=== PATIENT | female | born 1970 | race Caucasian/White ===

== ENCOUNTER 2018-04-12 06:36 | Day surgery (SDC) | payer OTHER, MEDICAID, SELFPAY ==
[2018-04-04 15:03] VITALS: BMI 52.0
[2018-04-12] VITALS (8 sets, daily range): BP systolic 111–179; BP diastolic 61–110; PULSE 66–77; RESP 12–20; TEMP 35.9–37.1; O2SAT 92–96; BMI 52.0
--- NOTE | 2018-04-12 | PATH_ITS ---
[facility] Accession Number: [id number] . 01 Material submitted: . LEFT CHEST MASS . 02 Diagnosis: Mass Left Chest: Subcutaneous lipoma, negative for atypia. MRV/04/16/2018 . 02 Electronically signed: . Alli Acosta MD, Pathologist NPI- [id number] . 01 Gross description: . Received in formalin, labeled 1-L chest mass, is an unoriented piece of fonseca-white smooth shiny skin with underlying tissue (4.9 x 3.0 x 2.2 cm). The underlying tissue is fatty and contains a fonseca-yellow solid rubbery mass (1.4 x 1.3 x 0.8 cm) located 0.5 cm from the skin surface and 0.3 cm from the closest resection margin. [employer] Specialist slices submitted in cassettes A1 and A2. ([id number]) /MRV . 02 Pathologist provided ICD-10: D17.1 . 02 CPT . 909340 Performed at: 01 [facility] [address] [id number] MD Kash Tamayo MD Phone: [phone] Performed at: 02 [facility] [address] [place], [place] [id number] MD Luis Angel Espinosa MD Phone: [phone]
[2018-04-12] MEDS: LACTATED RINGERS 1,000 ML 100 ML IV (07:15)
--- NOTE | 2018-04-12 07:46 | PM.HP.1 ---
History of Present Illness Date Patient Seen: 04/12/18 Time Patient Seen: 07:47 Chief complaint: [id number] EXCISION OF LEFT CHEST WALL MASS Narrative: Patient is a woman with Prader Willi syndrome with a tender mass in her left upper chest here for removal. Patient History Medical History Anxiety (Acute) Back pain (Acute) Bipolar depression (Acute) Diabetes (Acute) Foot pain, left (Acute) GERD (gastroesophageal reflux disease) (Acute) History of headache (Acute) Leg numbness (Acute) Mass in chest (Acute) Morbid obesity (Acute) Night sweats (Acute) Polyphagia (Acute) Ringing in ears (Acute) Shingles (Acute ~2014) Surgical menopause (Acute) Family & Social History Family History: Reviewed 04/12/18 by Trey Daniel MD Social History: household members family Tobacco & Substance use: Smoking Status Never smoker Meds Home Medications Medication Instructions Recorded Confirmed Type Glucose: Test Strips 0 str QDAY #100 str 06/28/16 Rx Glucose: Home Monitoring Kit kit BID #1 12/15/16 Rx Lancets units INTRADERMAL BID #180 12/15/16 Rx cholecalciferol (vitamin D3) 5,000 unit BID #0 01/12/18 04/12/18 History lysine [L-Lysine] 1,000 mg PO DAILY #0 01/12/18 04/12/18 History metformin [Glucophage] 500 mg PO BIDCC #180 tab 01/12/18 04/12/18 Rx multivitamin [Multiple Vitamins] #0 01/12/18 History blood sugar diagnostic strips #150 each 03/13/18 Rx lithium carbonate 300 mg PO BID 04/04/18 04/12/18 History omeprazole 40 mg PO BEDTIME 04/11/18 04/12/18 History paroxetine HCl [Paxil] 40 mg PO BEDTIME 04/11/18 04/12/18 History Allergies Allergy/AdvReac Type Severity Reaction Status Date / Time Sulfa (Sulfonamide Allergy Severe Hives & Unverified 01/24/18 12:14 Antibiotics) anaphylaxis [SULFA (SULFONAMIDE ANTIBIOTICS)] Review of Systems Review of Systems No cardiopulmonary syndromes no black or bloody bowel movements. No seizures or blackouts. Exam Vital Signs (past 8 hours): - 04/12/18 07:20 04/12/18 07:35 Temperature 96.7 F L Pulse Rate 66 Respiratory Rate 17 Blood Pressure 179/110 H 136/81 H Pulse Oximetry 96 Oxygen Delivery Method Room Air Narrative Exam Narrative: Obese woman in no distress. Her lungs are clear to auscultation no rales or rhonchi heart regular rate and rhythm no murmur gallop mass is near the edge of her sternoclavicular joint on the left measures 4 x 3 cm. Abdomen is protuberant and soft. She is alert and oriented but is somewhat mentally disabled. Assessment & Plan Plan: Assessment/Plan Narrative: Excise mass. Risks of bleeding infection recurrence. Further treatment based on pathology
[2018-04-12] MEDS: CEFAZOLIN 2 GM/100 ML FROZ.PIGGY IV (07:51)
--- NOTE | 2018-04-12 07:52 | PM.PREOP ---
Pre-operative Note Interval Note Pre-op Check: History & Physical exam performed today H&P completed within 30 days and has changed as indicated here:: None ASA Class (for procedural sedation): II
--- NOTE | 2018-04-12 08:20 | SUR.OPER ---
Supine on padded OR bed, head on pillow, arms secured on padded arm boards at <90 degrees abduction, legs uncrossed, safety belt at thigh, tape over blanket over lower legs.
--- NOTE | 2018-04-12 08:39 | PM.OP.1 ---
Operative Date/Time/Diagnoses - Date of procedure: 04/12/18 Time of procedure: 08:39 Pre-op diagnosis: Mass tender left chest wall Post-op diagnosis: same (Probable lipoma) Procedure & Clinicians Procedure: Wide excision down to muscle Same procedure as scheduled: Yes Indications: Tender mass in a patient with Prader Willi syndrome. General anesthesia required due to her mentation and ability to cooperate during the procedure, which are part of the syndrome. Surgeon: Trey Daniel Click Yes if Unassisted: Yes Anesthesia Type: General Operative Notes Findings: Mass removed Closure Type: primary Specimen(s): other Complications: other (Mass) Condition: stable Disposition: PACU Plan for aftercare: Follow-up in the office
[2018-04-12] MEDS: ONDANSETRON 4 MG/2 ML INJ IV (08:49)
[2018-04-12] MEDS: BUPIVACAINE 0.5% W/ EPI (PF) 30 ML VIAL INJ (09:57)
== END 2018-04-12 09:26 | disposition home or self-care (01) ==
PROVIDERS: Family Provider Family Medicine; PCP Family Medicine; Visit Provider Specialist
PROC: (CPT 21555; principal; 2018-04-12 07:45)
DX: D17.1 Benign lipomatous neoplasm of skin and subcutaneous tissue of trunk (principal); Q87.1 Congenital malformation syndromes predominantly associated with short stature; E11.9 Type 2 diabetes mellitus without complications; Z79.84 Long term (current) use of oral hypoglycemic drugs; F31.9 Bipolar disorder, unspecified; F41.9 Anxiety disorder, unspecified
CPT/HCPCS: 21555; J0330; J0690; J2250; J2405; J2704; J3010